=== PATIENT | female | born 1985 | race American Indian/Alaskan Native ===

== ENCOUNTER 2018-03-15 06:07 | Emergency (ER) | payer BC, OTHER ==
[2018-03-15 06:09] VITALS: BMI 38.9
--- NOTE | 2018-03-15 06:52 | ED PDOC ---
HPI: General Adult Time Seen by Provider: 03/15/18 06:27 Chief Complaint (Nursing): Abdominal Pain History Per: Patient History/Exam Limitations: no limitations Onset/Duration Of Symptoms: Days Additional Complaint(s): Patient states that she has had a Mirena IUD for 4 years and for the past 2 weeks she has felt her uterus "moving", states she went to see her gynecoloigist yesterday and had a Pap smear, was told that everything with her IUD was normal. States she was having spotting on -Sat, none today. No discharge. Vomited 2 days ago, took a test that was negative. States she doesn't have any pain in her abdomen. No fevers, chills. Past Medical History Reviewed: Historical Data, Nursing Documentation, Vital Signs Vital Signs: Last Vital Signs Temp 98.7 F 03/15/18 06:20 Pulse 78 03/15/18 06:20 Resp 16 03/15/18 06:20 BP 146/97 H 03/15/18 06:20 Pulse Ox 98 03/15/18 06:20 - Medical History PMH: HTN - Family History Family History: States: Unknown Family Hx - Immunization History Hx Tetanus Toxoid Vaccination: Yes Hx Influenza Vaccination: Yes Hx Pneumococcal Vaccination: No - Home Medications Home Medications: Ambulatory Orders Medication Instructions Recorded Labetalol Hydrochloride [Labetalol] 100 mg PO 09/17/13 - Allergies Allergies/Adverse Reactions: Allergies Allergy/AdvReac Type Severity Reaction Status Date / Time No Known Allergies Allergy Verified 03/15/18 06:20 Review of Systems ROS Statement: Except As Marked, All Systems Reviewed And Found Negative Gastrointestinal: Positive for: Vomiting Genitourinary Female: Positive for: Vaginal Bleeding Physical Exam - Reviewed Nursing Documentation Reviewed: Yes Vital Signs Reviewed: Yes - Physical Exam Appears: Positive for: Well, Non-toxic, No Acute Distress Head Exam: Positive for: ATRAUMATIC, NORMAL INSPECTION, NORMOCEPHALIC Skin: Positive for: Normal Color, Warm, DRY Eye Exam: Positive for: EOMI, Normal appearance, PERRL ENT: Positive for: Normal ENT Inspection Neck: Positive for: Normal, Painless ROM Cardiovascular/Chest: Positive for: Regular Rate, Rhythm Respiratory: Positive for: CNT, Normal Breath Sounds Gastrointestinal/Abdominal: Positive for: Normal Exam, Soft Pelvic Exam: Positive for: External Exam Normal, Speculum Exam Normal (IUD string in place), Other (Speed Reading Teacher was ED Nurse Pattie Olvera). Negative for : No Cerv. Motion Tender, Active Bleeding, Discharge, Lesions, Mass Back: Positive for: Normal Inspection Extremity: Positive for: Normal ROM Neurologic/Psych: Positive for: Alert, Oriented - ECG O2 Sat by Pulse Oximetry: 98 Pulse Ox Interpretation: Normal Medical Decision Making Medical Decision MakinAM A/P: Hx of HTN presenting with "uterus moving", IUD in place -will get ultrasound to visualize iud within uterus -will endorse case to Dr. Smith Disposition - Clinical Impression Clinical Impression: Nausea - Disposition Disposition: Transfer of Care Disposition Time: 07:00 Condition: STABLE Patient Signed Over To: Hoda Smith Handoff Comments: pending chris
--- NOTE | 2018-03-15 07:14 | ED PDOC ---
- ECG O2 Sat by Pulse Oximetry: 98 Medical Decision Making Medical Decision Making: Time: 7:00 --Patient transferred to this provider by Dr. Chandler pending US. Scribe Attestation: Documented by Zuleika Preston, acting as a scribe for Hoda Smith MD Provider Scribe Attestation: All medical record entries made by the Scribe were at my direction and personally dictated by me. I have reviewed the chart and agree that the record accurately reflects my personal performance of the history, physical exam, medical decision making, and the department course for this patient. I have also personally directed, reviewed, and agree with the discharge instructions and disposition. Disposition - Clinical Impression Clinical Impression: Nausea - Disposition Condition: STABLE Forms: [facility] (Persian)
--- NOTE | 2018-03-15 09:17 | US ---
HISTORY: feels uterus "moving", IUD COMPARISON: None available. TECHNIQUE: Transabdominal and endovaginal ultrasound examination of the pelvis was obtained. LMP 03/11/2018 FINDINGS: UTERUS: Measures 9.2 x 5.7 x 4.8 cm. Normal in size and appearance. No fibroid or other mass lesion seen. ENDOMETRIUM: Measures 4.3 mm in diameter. There is IUD seen at lobe position extending in the lower uterine segment and upper portion of the cervix. CERVIX: No cervical abnormality identified. RIGHT OVARY: Measures 3.3 x 2 x 1.7 cm. No solid mass. Normal flow. LEFT OVARY: Measures 3.4 x 2.7 x 2.25 cm. No solid mass. Normal flow. FREE FLUID: No significant free fluid noted. OTHER FINDINGS: None. IMPRESSION: Low position of the IUD seen in the lower uterine segment and upper portion of the cervix. Otherwise unremarkable study.
[2018-03-15 11:55] VITALS: BP 142/97; PULSE 88; RESP 18; TEMP 97.5; O2SAT 97
== END 2018-03-15 11:55 | disposition home or self-care (01) ==
LOC: H.ER 06:07
DX: R11.0 Nausea (principal); Z97.5 Presence of (intrauterine) contraceptive device; I10 Essential (primary) hypertension